=== PATIENT | female | born 1965 | race Caucasian/White ===

== ENCOUNTER 2017-03-14 06:29 | Observation (INO) | payer OTHER ==
[2017-03-11 15:22] LABS: HEMATOCRIT 38.7 % (36.0-48.0); HEMOGLOBIN 13.3 g/dL (12.0-16.0)
[2017-03-11 15:35] LABS: BUN (BLOOD UREA NITROGEN) 8 MG/DL (6-23); CALCIUM, SERUM 9.1 MG/DL (8.5-10.4); CHLORIDE, SERUM 106 MMOL/L (96-112); CO2 (CARBON DIOXIDE) 28 MMOL/L (24-34); CREATININE 0.69 MG/DL (0.55-1.02); GFR AFRICAN AMERICAN 116 ML/MIN (>=60); GFR NON AFRICAN AMERICAN 100 ML/MIN (>=60); GLUCOSE, SERUM 112 MG/DL (60-99); POTASSIUM, SERUM 4.1 MMOL/L (3.5-5.3); SODIUM, SERUM 141 MMOL/L (135-148)
--- NOTE | ~2017-03-14 | OP ---
Record Of Operation [facility] [address] [place]. [address] NAME: TAY CARRANZA : 63 STATUS : ADM IN PAT#: [id number] AGE: 51 ADM/REG DATE : 03/14/17 MR#: [id number] REPORT SERV DATE: 03/14/17 DICTATED BY: MANUELA CALDERA DATE: 03/14/17 REPORT STATUS : Draft TRANSCRIBED BY: MODL DATE: 03/14/17 DATE OF PROCEDURE: 03/14/2017 PREOPERATIVE DIAGNOSIS: Toxic multinodular goiter. POSTOPERATIVE DIAGNOSIS: Toxic multinodular goiter. PROCEDURE: Total thyroidectomy using nerve monitoring. PUBLIC ADDRESS TECHNICIAN: Yam[place]. ANESTHESIA: General. ESTIMATED BLOOD LOSS: 25 mL. IV FLUIDS: 1400 mL. SPECIMEN: Thyroid. COMPLICATIONS: None. BRIEF HISTORY: Ms. Carranza is a 51-year-old woman, who presented with toxic multinodular goiter. She had been on Tapazole for several years with complications. Total thyroidectomy was recommended. The procedure with the risks including bleeding, infection, injury to the recurrent laryngeal nerve causing hoarseness, low calcium following surgery, and the possibility of identifying malignant disease were all explained. She agreed to proceed. DESCRIPTION OF PROCEDURE: After consent was obtained, she was taken to the operating room and placed in supine position on the operating table. General endotracheal anesthesia was administered. A shoulder roll was placed. Neck was extended. She was placed in semi- Low's position. Preoperative antibiotics were administered. SCDs were placed. Time-out was performed. We began with a 5 cm skin crease incision using a #15 blade scalpel. Electrocautery was then used to dissect through the subcutaneous tissues and platysma. The subplatysmal flaps were created and the strap muscles were in the midline using electrocautery. We began on the right side. We elevated the right strap muscle and dissected the thyroid away from the strap muscle back to the carotid. We began at the superior pole and swept the tissues medial to the superior pole towards the larynx to avoid injury to the external branch of the superior laryngeal nerve. The superior pole vessels were divided sequentially using Harmonic scalpel and ligated using clips. The gland was rotated anteromedially. This exposed the superior parathyroid gland. Its attachments were divided using the Harmonic scalpel and ligated using clips. The gland continued to be anteromedially rotated to identify the inferior thyroid artery. The recurrent laryngeal nerve was identified posterior to the artery. It tested well with the nerve monitor. We divided the artery high Record Of Operation [facility] [address] [place]. [address] NAME: TAY CARRANZA : 63 STATUS : ADM IN PAT#: [id number] AGE: 51 ADM/REG DATE : 03/14/17 MR#: [id number] REPORT SERV DATE: 03/14/17 DICTATED BY: MANUELA CALDERA DATE: 03/14/17 REPORT STATUS : Draft TRANSCRIBED BY: MODL DATE: 03/14/17 up on the thyroid using the Harmonic scalpel and ligated using clips. The tissues anterior to the nerve were divided between clips up to the ligament of John. The ligament of John was divided sharply and tied using 3-0 silk ties. The lower parathyroid gland was identified and its attachments were divided using Harmonic scalpel. The lower pole vessels were divided using Harmonic scalpel and ligated using clips. The remaining tracheal attachments were divided using electrocautery. The isthmus was then divided using the Harmonic scalpel. A stitch was placed in the superior pole and was passed off the field. In similar fashion, we elevated the left strap muscle and dissected the thyroid away from strap muscle back to the carotid. We began at the superior pole and swept the tissues medial to the superior pole towards the larynx. The superior pole vessels were divided using Harmonic scalpel and ligated using clips. The gland was rotated anteromedially. This exposed the superior parathyroid gland. Its attachments were divided using Harmonic scalpel and ligated using clips. The inferior parathyroid gland was also identified. Its attachments were divided using Harmonic scalpel and ligated using clips. It was rotated laterally. We identified the inferior thyroid artery and then the nerve as it coursed posterior to the artery. It tested well with the nerve monitor. We divided the artery high up on the thyroid and then ligated using clips. The tissues anterior to the nerve were divided between clips up to the ligament of John. The ligament of John was divided sharply and tied using 3-0 silk ties. The lower pole vessels were divided using Harmonic scalpel and ligated using clips. The remaining tracheal attachments were divided using electrocautery. She did have a pyramidal lobe, which was dissected up to the larynx and divided at the larynx using electrocautery and tied using 3-0 silk ties. A stitch was placed in the superior pole and was passed off the field. At the conclusion of the case, we inspected both sides. Hemostasis was good. Both nerves tested well on exit testing and all four parathyroid glands were viable. We then placed Surgicel on both sides of the neck. We reapproximated the strap muscles in the midline using a running 3-0 Vicryl suture with a small gap left inferiorly. The platysma was reapproximated using interrupted 4-0 Vicryl sutures. A running 5-0 Monocryl deep dermal suture was placed followed by running 5-0 Prolene subcuticular stitch. The neck was cleaned Dermabond was applied and the Prolene was removed. The patient tolerated the procedure well and was extubated in the operating room and sent to the recovery room in stable condition. WG/MODL Manuela Caldera MD / [id number] CC: MD Zina Cottrell M.D.
[~2017-03-14 06:29] MED LIST: FORTAMET500 MG PO; JANUMET1 TA1 PO; METHIMAZOLE5 MG OR; PRILO PO; PRIN5 PO; TAPAZOLE5 MG PO; TRULICITY1.5 MG/0.5 SQ; VITE PO; Vitamin D 5; XANAX1 MG PO; ZYRTEC ALLGY10 MG PO
[2017-03-15] MEDS ORDERED: SYN112 PO (09:29)
[2017-03-15] MEDS ORDERED: PR25 PO (09:30)
[2017-03-15] MEDS ORDERED: CALTRA600D PO (09:30)
[2017-03-15] MEDS ORDERED: PCET PO (09:31)
[2017-03-16] MEDS ORDERED: ZANTAC 150 PO (14:03)
[2017-03-18] MEDS ORDERED: ROCALTROL0.5 MCG PO (13:32)
[2017-03-18] MEDS ORDERED: TUMSROLL PO (13:33)
== END 2017-03-15 11:41 | disposition home or self-care (01) ==
LOC: SDC 06:29 → 4SO 12:07
PROVIDERS: Surgery
PROC: 0GTK0ZZ Resection of Thyroid Gland, Open Approach (ICD-10-PCS; principal; 2017-03-14 07:45)
DX: E05.20 Thyrotoxicosis with toxic multinodular goiter without thyrotoxic crisis or storm (principal); E11.9 Type 2 diabetes mellitus without complications; F41.9 Anxiety disorder, unspecified; F32.9 Major depressive disorder, single episode, unspecified; K44.9 Diaphragmatic hernia without obstruction or gangrene; Z88.2 Allergy status to sulfonamides; Z85.840 Personal history of malignant neoplasm of eye; Z79.84 Long term (current) use of oral hypoglycemic drugs; Z79.899 Other long term (current) drug therapy; Z98.890 Other specified postprocedural states
CPT/HCPCS: 80048; 82310; 82330; 82962; 84703; 85014; 85018; 88307; 93005; 96374; 96375; 96376; A9270-GY; G0378; J0690; J1170; J2250; J2270; J2370; J2405; J2550; J3010

== ENCOUNTER 2017-03-16 11:01 | Emergency (ER) | payer OTHER ==
[~2017-03-16 11:01] MED LIST changes: +CALTRA600D PO; +PCET PO; +PR25 PO; +SYN112 PO
[2017-03-16 12:21] LABS: BASOPHILS 0.2 %; BASOPHILS ABSOLUTE 0.02 10/3/uL (0.0-0.16); EOSINOPHILS 0.8 %; EOSINOPHILS ABSOLUTE 0.07 10/3/uL (0.0-0.53); ER CBC TAT 0 Hrs 03 Mins; HEMOGLOBIN 12.4 g/dL (12.0-16.0); IMMATURE GRANULOCYTES 0.1 %; IMMATURE GRANULOCYTES ABSOLUTE 0.01 10/3/uL (0.0-0.11); LYMPHOCYTES 26.3 %; LYMPHOCYTES ABSOLUTE 2.33 10/3/uL (0.67-4.30); MEAN CORPUS HGB CONC 34.4 g/dL (32.0-36.0); MEAN CORPUSCULAR HEMOGLOB 29.1 pg (26.0-34.0); MEAN PLATELET VOLUME 9.6 fL (9.2-13.0); MONOCYTES 5.5 %; MONOCYTES ABSOLUTE 0.49 10/3/uL (0.21-1.20); NEUTROPHILS 67.1 %; NEUTROPHILS ABSOLUTE 5.95 10/3/uL (2.02-8.40); PLATELET COUNT 223 10/3/uL (150-400); RBC DISTRIBUTION WIDTH 12.1 % (12.0-16.0); RED CELL COUNT 4.26 10/6/uL (4.0-5.6); WHITE BLOOD CELLS 8.9 10/3/uL (4.5-10.5)
[2017-03-16 12:24] LABS: MANUAL DIFF NO %; MEAN CORPUSCULAR VOLUME 84.5 fL (80-100)
[2017-03-16 12:37] LABS: A/G RATIO 1.2 (0.7-1.9); ALBUMIN 3.8 G/DL (3.5-5.0); BUN (BLOOD UREA NITROGEN) 10 MG/DL (6-23); CHLORIDE, SERUM 105 MMOL/L (96-112); CO2 (CARBON DIOXIDE) 29 MMOL/L (24-34); GFR AFRICAN AMERICAN 115 ML/MIN (>=60); GFR NON AFRICAN AMERICAN 100 ML/MIN (>=60); GLOBULIN 3.2 G/DL (2.5-4.1); GLUCOSE, SERUM 134 MG/DL (60-99); SGOT(AST) 10 U/L (5-40); SGPT(ALT) 14 U/L (5-65); SODIUM, SERUM 142 MMOL/L (135-148); TOTAL BILIRUBIN 0.7 MG/DL (0-1.2)
[2017-03-16 12:38] LABS: ALKALINE PHOSPHATASE 107 U/L (45-117); CALCIUM, SERUM 6.4 MG/DL (8.5-10.4); POTASSIUM, SERUM 3.2 MMOL/L (3.5-5.3)
[2017-03-16] MEDS ORDERED: ZANTAC 150 PO (14:03)
[2017-03-18] MEDS ORDERED: ROCALTROL0.5 MCG PO (13:32)
[2017-03-18] MEDS ORDERED: TUMSROLL PO (13:33)
== END 2017-03-16 17:27 | disposition home or self-care (01) ==
LOC: ER 11:01
PROVIDERS: Emergency Medicine
DX: E83.51 Hypocalcemia (principal); E11.9 Type 2 diabetes mellitus without complications; E89.0 Postprocedural hypothyroidism; Z88.2 Allergy status to sulfonamides; Z79.84 Long term (current) use of oral hypoglycemic drugs; Z79.899 Other long term (current) drug therapy
CPT/HCPCS: 80053; 82310; 82330; 85025; 93005; 96365; 99284; A9270-GY; J0610